=== PATIENT | male | born 1950 | race Caucasian/White ===

== ENCOUNTER → 2023-06-08 10:10 | Outpatient (REF) | payer MEDICARE, OTHER, SELFPAY | LOC: HWRAD 10:10 | PROVIDERS: ATTENDING PHYSICIAN Surgery; FAMILY PHYSICIAN Family Medicine | DX: K43.2 Incisional hernia without obstruction or gangrene (principal) | CPT/HCPCS: 74177; Q9967 ==

== ENCOUNTER → 2023-07-13 11:15 | Outpatient (REF) | payer MEDICARE, OTHER, SELFPAY | LOC: HWRAD 11:15 | PROVIDERS: ATTENDING PHYSICIAN Family Medicine | DX: N28.1 Cyst of kidney, acquired (principal) | CPT/HCPCS: 76770 ==

== ENCOUNTER → 2023-12-07 12:50 | Outpatient (REF) | payer MEDICARE, OTHER, SELFPAY | LOC: CLAB 12:50 | PROVIDERS: ATTENDING PHYSICIAN Specialist | DX: R97.20 Elevated prostate specific antigen [PSA] (principal) | CPT/HCPCS: 88305 ==

== ENCOUNTER → 2023-12-09 11:12 | Outpatient (REF) | payer SELFPAY ==
[2023-12-09 15:05] LABS: HIV Combo Negative (Negative)
[2023-12-09 15:53] LABS: Hepatitis B Surface Antigen Negative (Negative)
[2023-12-09 16:10] LABS: Hepatitis C Antibody Negative (Negative)
== END ==
LOC: OHS 11:12
PROVIDERS: ATTENDING PHYSICIAN Nurse Practitioner Family
DX: Z23 Encounter for immunization (principal)
CPT/HCPCS: 36415; 86803; 87340; 87389

== ENCOUNTER → 2023-12-17 13:21 | Outpatient (REF) | payer MEDICARE, OTHER, SELFPAY | LOC: HWRAD 13:21 | PROVIDERS: ATTENDING PHYSICIAN Specialist; FAMILY PHYSICIAN Family Medicine | DX: C61 Malignant neoplasm of prostate (principal) | CPT/HCPCS: 71046 ==

== ENCOUNTER → 2024-01-04 10:12 | Outpatient (REF) | payer MEDICARE, OTHER, SELFPAY | LOC: RAD 10:12 | PROVIDERS: ATTENDING PHYSICIAN Specialist; FAMILY PHYSICIAN Family Medicine; REFERRING PHYSICIAN Internal Medicine Cardiovascular Disease | DX: C61 Malignant neoplasm of prostate (principal) | CPT/HCPCS: 78306; A9503 ==

== ENCOUNTER → 2024-01-08 13:53 | Outpatient (REF) | payer MEDICARE, OTHER, SELFPAY | LOC: MRI 13:53 | PROVIDERS: ATTENDING PHYSICIAN Specialist; FAMILY PHYSICIAN Family Medicine | DX: C61 Malignant neoplasm of prostate (principal) | CPT/HCPCS: 72197; A9575 ==

== ENCOUNTER 2024-08-23 16:14 | Emergency (ER) | payer MEDICARE, OTHER, SELFPAY ==
[2024-08-23 16:20] VITALS: BP 121/71
[2024-08-23 17:00] LABS: % Basophils 0.6 % (0-2); % Eosinophils 7.9 % (0-6); % Immature Granulocytes 0.2 % (0-0.5); % Lymphocytes 13.8 % (20.5-51.1); % Monocytes 8.5 % (1.7-9.3); Absolute Eosinophils 0.4 10^3/uL (0-0.7); Absolute Lymphocytes 0.8 10^3/uL (1.2-3.4); Absolute Monocytes 0.5 10^3/uL (0.1-0.6); Absolute Neutrophils 3.8 10^3/uL (1.4-6.5); Hematocrit 34.8 % (39.0-52.0); Hemoglobin 11.6 g/dL (13.0-18.0); Mean Corp Hgb Conc. 33.3 g/dL (33.0-37.0); Mean Corpuscular Hgb 31.4 pg (27.0-31.0); Mean Corpuscular Volume 94.1 fL (80.0-94.0); Mean Platelet Volume 9.5 fL (7.4-10.4); Nucleated Red Blood Cells % 0 % (-); Platelet Count 181 10^3/uL (130-400); Red Cell Dist. Width 14.7 % (11.5-14.5); White Blood Cell Count 5.4 10^3/uL (4.8-10.8)
[2024-08-23 17:06] LABS: ALT (SGPT) 20 U/L (0-50); AST (SGOT) 31 U/L (17-59); Albumin 3.7 g/dl (3.5-5.0); Alkaline Phosphatase 128 U/L (38-126); Blood Urea Nitrogen 23 mg/dl (9-20); Calcium 8.6 mg/dl (8.4-10.2); Carbon Dioxide 34 mmol/L (22-30); Chloride 102 mmol/L (98-107); Glucose 87 mg/dl (70-99); Potassium 4.5 mmol/L (3.5-5.1); Sodium 137 mmol/L (135-145); Total Bilirubin 0.9 mg/dl (0.2-1.3); Total Protein 6.6 g/dl (6.3-8.2); eGFR > 60.00
--- NOTE | 2024-08-23 19:53 | ED.GENMED ---
History of Present Illness
General
Chief Complaint: Urinary Symptoms
Source: patient
Exam Limitations: none
Time Seen by Provider: 08/23/24 19:51
Nursing documentation reviewed up to this point in time: agreed with
History of Present Illness
History of Present Illness:
74-year-old male with history of CHF, pacemaker, defibrillator, prostate cancer undergoing radiation therapy currently presents for inability to empty his bladder. He states he urinates but he just does not feel like his bladder is emptying. He
denies significant discomfort at this time. He just voided 200 mL but feels like his bladder is not emptied. He denies fever or chills.
Past History
Past History
ED Past Medical History: CHF
ED Past Surgical History: Bowel resection (For diverticulitis), Cardiac (Defibrillator, pacemaker), Orthopedic and Other (Thyroidectomy)
Review of Systems
Review of Systems
Allergies reviewed?: Yes
All Other Systems: ROS reviewed and negative except as documented in HPI and ROS
Constitutional: Denies fever or chills
Respiratory: Denies trouble breathing
Cardiac: Denies chest pain
ABD/GI: Denies abdominal pain, nausea or vomiting
: Reports difficulty voiding (Feels like he is not emptying his bladder); Denies dysuria, flank pain, incontinence or bleeding
Musculoskeletal: Reports no symptoms
Skin: Reports no symptoms
Neurological: Reports no symptoms
Phy Exam
Physical Exam
Physical Exam:
GENERAL: No acute distress. A&Ox3.
CONSTITUTIONAL: Afebrile.
RESPIRATORY: Regular respirations, nonlabored, lungs clear.
CARDIOVASCULAR: Regular rate and rhythm, no murmurs, no rubs.
GI: Soft, nontender, normal BS
MUSCULOSKELETAL: Moves with ease. Well perfused.
SKIN: Warm, dry, pink
PSYCH: Normal mood and affect. Well kept, interactive and appropriate
NEUROLOGIC: Awake, alert and oriented. No focal neurological deficits
Course
Orders/Labs/Results
Orders:
Orders
08/23/24 16:43
Complete Blood Count/With Diff Urgent
Comprehensive Metabolic Panel Urgent
08/23/24 20:05
Urinalysis Reflex To Culture Urgent
Date Specimen was Collected: 08/23/24
Time Specimen was Collected: 16:20
Abnormal Lab Results
08/23/24
16:43
RBC 3.70 L 10^6/uL
(4.70-6.10)
Hgb 11.6 L g/dL
(13.0-18.0)
Hct 34.8 L %
(39.0-52.0)
MCV 94.1 H fL
(80.0-94.0)
MCH 31.4 H pg
(27.0-31.0)
RDW 14.7 H %
(11.5-14.5)
Absolute Lymphs (auto) 0.8 L 10^3/uL
(1.2-3.4)
Lymphocytes % 13.8 L %
(20.5-51.1)
Eosinophils % 7.9 H %
(0-6)
Carbon Dioxide 34 H mmol/L
(22-30)
BUN 23 H mg/dl
(9-20)
Alkaline Phosphatase 128 H U/L
(38-126)
08/23/24 16:43
08/23/24 16:43
Vital Signs
Initial and Last Documented VS:
Initial Vital Signs
Temp Pulse Resp BP Pulse Ox
97.7 F 78 16 121/71 99
08/23/24 16:20 08/23/24 16:20 08/23/24 16:20 08/23/24 16:20 08/23/24 16:20
Last Documented Vital Signs
Temp Pulse Resp BP Pulse Ox
97.7 F 79 18 128/75 98
08/23/24 16:20 08/23/24 20:37 08/23/24 20:37 08/23/24 20:37 08/23/24 20:37
MDM/Problems Addressed
Differential Diagnosis Includes:
Acute urinary retention, UTI
MDM/Problems Addressed:
74-year-old male with history of CHF, pacemaker, defibrillator, prostate cancer undergoing radiation therapy currently presents for inability to empty his bladder. He states he urinates but he just does not feel like his bladder is emptying. He
denies significant discomfort at this time. He just voided 200 mL but feels like his bladder is not emptied. He denies fever or chills.
Afebrile, NAD
CBC, CMP with no clinically significant abnormality
Bladder scan shows no residual urine post voiding 200 mL clear deana urine
UA negative
Pt is comfortable
Patient is stable for discharge to follow-up with urology Dr. Scanlon who he has seen in the past
Chronic conditions affecting care: Cancer (Currently being treated with radiation therapy for prostate cancer)
*Critical Care Note
Total Time (30-74mins, 75-104mins- exclusive of procedures): Not Applicable
ED Attending Note
-
Portions of this chart may have been created with voice recognition software.� Occasional wrong word or��sound alike� substitutions may have occurred due to the inherent limitations of voice recognition software.
Discharge Plan
Departure
Patient Disposition: Home (Routine Discharge)
Date of Disposition: 08/23/24
Time of Disposition: 20:24
Patient with high blood pressure during this ER visit?: No
Condition: Good
Discharge Problem:
Urinary urgency
Referrals:
Armond Scanlon MD [Active] - Call in 1-3 days for appt
Sloane Kimble MD [Family Provider] -
Activity Restrictions/Additional Instructions:
As we discussed, your urine shows no sign of infection
There was no urine left in your bladder after you urinated
Follow-up with urology Dr. Scanlon or your oncologist if you continue to have discomfort
Interventions
Interventions:
*Risk Screen - Suicide Last Done: 08/23/24 16:26
*Neglect/Abuse Screening Last Done: 08/23/24 16:26
*Nursing Disposition Last Done: 08/23/24 20:37
ED-Male Genitourinary Assessment Last Done: 08/23/24 19:45
Discharge Date and Time
Discharge Date/Time: 08/23/24 20:54
Print Language: PORTUGUESE
[2024-08-23 20:15] LABS: Urine Albumin Negative (Neg - Trace); Urine Bilirubin Negative (Negative); Urine Character Clear (Clear); Urine Color Yellow; Urine Glucose Negative (Negative); Urine Ketone Negative (Negative); Urine Leukocyte Negative (Negative); Urine Nitrite Negative (Negative); Urine Occult Blood Negative (Negative); Urine Urobilinogen Negative (Neg - 1+)
[2024-08-23 20:37] VITALS: BP 128/75
== END 2024-08-23 20:54 | disposition home or self-care (01) ==
LOC: EMR 16:14
PROVIDERS: Student in an Organized Health Care Education/Training Program; EMERGENCY PHYSICIAN Emergency Medicine; FAMILY PHYSICIAN Family Medicine
DX: R39.15 Urgency of urination (principal); C61 Malignant neoplasm of prostate; Z92.3 Personal history of irradiation
CPT/HCPCS: 99283; 80053; 81003; 85025